=== PATIENT | male | born 1930 | race Caucasian/White ===

== ENCOUNTER 2018-06-14 10:58 | Emergency (ER) | payer MEDICARE, MEDICAID ==
[~2018-06-14 10:58] MED LIST: Cefepime 1 GM VIAL ONE; Sodium Chloride 0.9% 1,000 ML BAG ONE; Sodium Chloride 0.9% 100 ML BAG ONE
[2018-06-14 11:25] LABS: #Lymphocytes 1.1 thou/uL (1.20-3.40); #Monocytes 0.4 thou/uL (0.11-0.59); %Basophils 0.4 % (0.0-1.0); %Lymphocytes 11.8 % (21.0-51.0); %Monocytes 4.2 % (0.0-10.0); %Neutrophils 83.6 % (42.0-75.0); Hemoglobin 15.2 g/dL (14.0-18.0); Mean Corpuscular HGB CONC 32.5 g/dL (32.0-36.0); Mean Corpuscular Hemoglobin 29.7 pg (27.0-31.0); Mean Corpuscular Volume 91.4 fL (78.0-98.0); Mean Platelet Volume 7.6 fL (7.4-10.4); Platelet Count 218 thou/uL (130-400); RBC Distribution Width 13.1 % (11.5-14.5); Red Blood Cell (RBC) Count 5.13 mill/uL (4.70-6.10); White Blood Cell (WBC) Count 9.5 thou/uL (4.8-10.8)
[2018-06-14 11:43] LABS: ALT (SGPT) 21 U/L (8-55); AST (SGOT) 20 U/L (5-34); Albumin 3.8 g/dL (3.4-4.8); Alkaline Phosphatase 98 U/L (40-150); Anion Gap 18 mmol/L (10-20); BUN (Urea Nitrogen) 38 mg/dL (8.4-25.7); Bilirubin, Total 1.2 mg/dL (0.2-1.2); Calc. Creatinine Clearance 0 mL/min (70-130); Carbon Dioxide 16 mmol/L (23-31); Chloride 114 mmol/L (98-107); Estimated GFR-MDRD 53; Globulin 3.5 g/dL (2.4-3.5); Glucose 201 mg/dL (83-110); Lipase 5 U/L (8-78); Potassium 3.5 mmol/L (3.5-5.1); Protein, Total 7.3 g/dL (5.8-8.1); Sodium 144 mmol/L (136-145)
[2018-06-14] MEDS ORDERED: Cefepime 1 GM VIAL ONE (11:45)
[2018-06-14 11:48] LABS: pH (Venous) 7.421 (7.35-7.45)
[2018-06-14 11:49] LABS: Base Excess-Venous -6.7 mmol/L (0 (+/- 2.5)); Bicarbonate (HCO3v) 15.6 mmol/L (22.0-29.0); Hemoglobin - Calc 15.7 g/dL (12.0-18.0); Potassium 3.4 mmol/L (3.4-4.7); vO2 Saturation-calc 99.6 % (94-98)
[2018-06-14 11:50] LABS: Calcium, Ionized 1.11 mmol/L (1.12-1.32); T. Carbon Dioxide 16.4 mmol/L (1.0-85.0)
[2018-06-14 11:54] LABS: O2 Tension (PvO2) 164.4 mmHg (35.0-45.0)
--- NOTE | 2018-06-14 12:08 | RAD ---
PORTABLE AP CHEST: Date: 06/14/18 HISTORY: Decreased appetite with nausea and vomiting for the past 2 days. Generalized malaise. Diminished kelley th sounds bilateral lower lobes. History also includes injury. COMPARISON: 12/23/12. FINDINGS: The cardiac silhouette is within normal limits. Calcified granuloma overlies the lateral right mid lolly ng zone. There is mild pulmonary vascular congestion. Lungs are otherwise clear. There is no consolid ation or definite pleural effusion. Vascular calcifications seen in thoracic aorta. No other interval change. IMPRESSION: Mild pulmonary vascular congestion. POS: [facility]
[2018-06-14 12:23] LABS: Bilirubin Small (Negative); Blood, Urine Trace (Negative); Glucose, Urine (Dipstick) Negative (Negative); Leukocyte Negative (Negative); Nitrite Negative (Negative); Protein, Urine (Dipstick) 30 mg/dL (Neg-Trace); Specific Gravity, Urine 1.025 (1.005-1.030); Urobilinogen 0.2 mg/dL (0.2-1.0); pH, Urine 5.5 (5.0-9.0)
[2018-06-14 12:25] LABS: Clarity Hazy (Clear)
[2018-06-14 12:26] LABS: Bacteria/HPF Rare-Few HPF (None Seen); Crystals/HPF 2+ AMORPH PHOS HPF (Negative); Squamous Epithelial 0-3 HPF (0-3); WBC/HPF 0-3 HPF (0-3)
[2018-06-14] MEDS ORDERED: Acetaminophen 650 MG Suppository ONE (13:44)
[2018-06-14] MEDS ORDERED: metroNIDAZOLE 500 MG/100 ML BAG ONE (13:44)
[2018-06-14] MEDS ORDERED: Clindamycin/D5W 300 MG/50 ML BAG ONE (13:47)
--- NOTE | 2018-06-14 13:51 | CT ---
CT CHEST WITHOUT CONTRAST CT ABDOMEN WITHOUT CONTRAST CT PELVIS WITHOUT CONTRAST: Date: 06/14/18 HISTORY: Fever, nausea, vomiting, cough. COMPARISON: Chest radiograph same date. FINDINGS: There is mild pulmonary edema. There is also consolidation within both lower lobes greater than expec denisse for atelectatic changes concerning for pneumonia. No pneumothorax. Thyroid is unremarkable. No mediastinal adenopathy. No axillary adenopathy. No pericardial effusion. Noncontrast evaluation of the liver is unremarkable. There appears to be some layering cholelithiasis . The gallbladder is not dilated. No nephroureterolithiasis or hydroureteronephrosis. No secondary evidence of a recently passed stone. Aortoiliac contour is nonaneurysmal. No significant free intraperitoneal fluid. No pneumoperitoneum. Noncontrast evaluation of the adrenal glands are unremarkable. No suspicious osteolytic or osteoblast ic lesions. Exam is degraded by motion artifact. IMPRESSION: Mild pulmonary edema and multifocal lower lobe pneumonia. No abnormality within the abdomen or pelvis . POS: [facility]
== END 2018-06-14 15:03 | disposition short-term general hospital (02) ==
LOC: MADERS 10:58
DX: A41.9 Sepsis, unspecified organism (principal); J18.9 Pneumonia, unspecified organism; G30.9 Alzheimer's disease, unspecified; F02.80 Dementia in other diseases classified elsewhere, unspecified severity, without behavioral disturbance, psychotic disturbance, mood disturbance, and anxiety; F32.9 Major depressive disorder, single episode, unspecified; Z79.899 Other long term (current) drug therapy
CPT/HCPCS: 36415; 51701; 71045; 71250; 74177; 80053; 81003; 81015; 82330; 82803; 83605; 83690; 83880; 84484; 85025; 87040; 87804; 93005; 96361; 96365; 96367; J0692; J3490; J7050